=== PATIENT | male | born 1960 | race Caucasian/White ===

== ENCOUNTER 2023-07-14 11:17 | Emergency (ER) | payer OTHER, MEDICAID, SELFPAY ==
[2023-07-14] VITALS (7 sets, daily range): BP systolic 109–137; BP diastolic 60–71; PULSE 70–75; RESP 18–24; TEMP 36.5–37.1; O2SAT 94–96; BMI 25.8
[2023-07-14 12:11] LABS: Add Manual Diff / Slide Review NO; Basophils Absolute Auto 0 /uL (0-100); Basophils Percent Auto 0.4 % (0-2); Eosinophils Absolute Auto 0 /uL (0-450); Hematocrit 40.7 % (41-53); Hemoglobin 14.4 g/dL (13.5-17.5); Lymphocytes Absolute Auto 1000 /uL (1100-4500); Lymphocytes Percent Auto 8.1 % (25-40); Mean Corpuscular HGB Conc 35.3 % (30-36); Mean Corpuscular Hemoglobin 29.7 PG (26-34); Mean Corpuscular Volume 84.2 fL (80-100); Monocytes Absolute Auto 700 /uL (0-900); Monocytes Percent Auto 5.9 % (3-14); Neutrophils Absolute Auto 10800 /uL (1500-7000); Neutrophils Percent Auto 85.6 % (50-75); Platelet Count 141 X10^3/uL (150-400); Red Blood Cell Count 4.83 X10^6/uL (4.5-5.9); Red Cell Distribution Width 12.9 % (11.6-14.8); White Blood Cell Count 12.6 X10^3/uL (4.5-11.0)
[2023-07-14 12:22] LABS: Alanine Aminotransferase 35 IU/L (<50); Albumin 4.5 g/dL (3.5-5.0); Albumin Globulin Ratio 1.3 (1.0-2.8); Alkaline Phosphatase 64 U/L (38-126); Aspartate Aminotransferase 30 IU/L (17-59); BUN Creatinine Ratio 18.1 (6-22); Bilirubin Total 1.8 mg/dL (0.2-1.3); Blood Urea Nitrogen 19 mg/dL (9-20); Calcium 8.7 mg/dL (8.4-10.2); Carbon Dioxide 24 mmol/L (22-32); Chloride 102 mmol/L (98-107); Estimated Glomerular Filt Rate > 60 mL/min (>60); Globulin 3.5 g/dL (1.7-4.1); Glucose 145 mg/dL (80-110); HEMOLYSIS < 15 (0-50); Lipase 49 U/L (23-300); Potassium 3.6 mmol/L (3.4-5.1); Sodium 138 mmol/L (137-145)
--- NOTE | 2023-07-14 12:41 | ED_ITS ---
HPI - Abdominal Pain <Nilay Hanna PA-C - Last Filed: 07/14/23 15:52> General Chief Complaint: Abdominal Pain Stated Complaint: abd pain, rash on rt leg, weakness Time Seen by Provider: 07/14/23 11:56 Source: patient Mode of arrival: Wheelchair History of Present Illness HPI narrative: 63-year-old male with past medical history hypertension presents to the ED with 3 days of flu-like symptoms. Patient endorses subject fever, chills, all-over myalgias, loss of appetite, abdominal pain. Patient denies chest pain, shortness of breath, dysuria, vomiting, lightheadedness, dizziness, syncope. Patient denies rhinorrhea or cough. Patient endorses that there are other family members down with cough and cold/flu symptoms. Patient states that he gets nauseated at the thought of food and has not eaten very much in the last 2- 3 days. Patient also complains of generalized abdominal pain, which he attributes to not eating. Patient also endorses redness, swelling, pain of the right lower leg. Patient states that he chronic swelling in his right leg, however it is now red, more swollen, warm to touch and painful. Related Data Previous Rx's Medication Instructions Recorded cephalexin 500 mg capsule 500 mg PO QID 5 days #20 caps 07/14/23 Allergies Allergy/AdvReac Type Severity Reaction Status Date / Time Sulfa (Sulfonamide Allergy Verified 07/14/23 11:41 Antibiotics) Review of Systems <Nilay Hanna PA-C - Last Filed: 07/14/23 15:52> Constitutional Constitutional: Reports body ache(s), Reports chills, Reports fatigue, Reports fever(s), Denies frequent falls, Denies lethargy, Reports poor appetite and Denies weakness Eyes Eyes: Denies change in vision, Denies eye discharge, Denies irritation and Denies loss of vision ENT Ears, Nose, Mouth, and Throat: Denies change in voice, Denies dizziness, Denies neck pain, Denies sore throat and Denies throat swelling Cardiovascular Cardiovascular: Denies chest pain, Denies irregular heart rhythm, Denies lightheadedness, Denies palpitations, Denies dyspnea, Denies dyspnea on exertion and Denies orthopnea Respiratory Respiratory: Denies cough, Denies dyspnea, Denies dyspnea on exertion and Denies wheezing Gastrointestinal Gastrointestinal: Reports abdominal pain, Denies change in bowel habits, Denies diarrhea, Reports nausea and Denies vomiting Musculoskeletal Musculoskeletal: Denies neck pain and Denies numbness Integumentary/Breasts Skin/Breast: Denies pruritus, Reports erythema, Denies rash and Denies wounds Comments: Swelling, redness, warmth, pain of right lower leg. Neurologic Neurologic: Denies behavioral changes, Denies confusion, Denies dizziness, Denies frequent falls, Denies loss of vision, Denies numbness and Denies weakness Psychiatric Psychiatric: Denies anxiety, Denies behavioral changes, Denies confusion, Denies depression, Denies homicidal ideation and Denies suicidal ideation Endocrine Endocrine: Reports fatigue, Denies flushing and Denies palpitations Hematologic/Lymphatic Hematologic/Lymphatic: Denies easy bruising Allergic/Immunologic Allergic/Immunologic: Denies urticaria, Denies throat swelling and Denies wheezing Patient History <Nilay Hanna PA-C - Last Filed: 07/14/23 15:52> Social History Smoking Status: Former smoker Smoking Status: Former smoker alcohol intake frequency: other Substance Use Type: marijuana Exam <Nilay Hanna PA-C - Last Filed: 07/14/23 15:52> Narrative Exam Narrative: Const General:?cooperative, healthy appearing and comfortable [facility] Head:?normal to inspection Ears:?hearing grossly normal bilaterally Nose:?external nose normal Face and sinus:?normal facial exam and sinuses nontender Mouth:?oral mucosae normal Throat:?posterior oropharynx normal Eyes General:?appearance normal, both eyes and all related structures Neck Neck:?normal visual inspection and no lymphadenopathy noted Resp Effort & Inspection:?normal respiratory effort Auscultation:?clear to auscultation bilaterally Cardio Rate:?regular rate Rhythm:?regular rhythm GI Abdomen is somewhat hard, mildly tender to palpation. No CVA tenderness. Integumentary Right lower leg appears swollen, erythematous, warm to touch, tender to touch. Erythema extends from the feet up to the knee. Strength and sensation is intact. There is full range of motion. Patient is neurovascularly intact. Neuro General:?patient alert, patient awake and patient oriented x3 Initial Vital Signs Initial Vital Signs: Vital Signs Temperature 98.2 F 07/14/23 11:41 Pulse Rate 75 07/14/23 11:41 Respiratory Rate 18 07/14/23 11:41 Blood Pressure 137/71 07/14/23 11:41 Pulse Oximetry 94 07/14/23 11:41 Oxygen Delivery Method Room Air 07/14/23 11:41 <Lynette Torre DO - Last Filed: 07/15/23 07:24> Initial Vital Signs Initial Vital Signs: Vital Signs Temperature 98.2 F 07/14/23 11:41 Pulse Rate 75 07/14/23 11:41 Respiratory Rate 18 07/14/23 11:41 Blood Pressure 137/71 07/14/23 11:41 Pulse Oximetry 94 07/14/23 11:41 Oxygen Delivery Method Room Air 07/14/23 11:41 Course <Nilay Hanna PA-C - Last Filed: 07/14/23 15:52> Orders Ordered: Discontinued Medications Cephalexin HCl (Cephalexin 250 Mg Capsule) 500 mg PO NOW ONE Stop: 07/14/23 15:19 Last Admin: 07/14/23 15:23 Dose: 500 mg Documented By: GUILLERMO Sodium Chloride (Normal Saline 0.9%) 1,000 mls @ 1,000 mls/hr IV BOLUS ONE Stop: 07/14/23 14:25 Last Infusion: 07/14/23 14:35 Dose: Infused Documented By: Admin: 07/14/23 13:34 Dose: 1,000 mls/hr Documented By: GUILLERMO Ibuprofen (Ibuprofen 400 Mg Tablet) 400 mg PO NOW ONE Stop: 07/14/23 14:32 Last Admin: 07/14/23 14:33 Dose: 400 mg Documented By: GUILLERMO Ondansetron HCl (Ondansetron 4 Mg/2 Ml Inj) 4 mg IV NOW PRN PRN Reason: Nausea And Vomiting Last Admin: 07/14/23 13:34 Dose: 4 mg Documented By: RB Ondansetron HCl (Ondansetron 4 Mg Odt) 4 mg PO NOW PRN PRN Reason: Nausea And Vomiting Vital Signs Vital signs: Vital Signs - 8 hr 07/14/23 11:41 07/14/23 12:10 07/14/23 12:36 Temperature 98.2 F Pulse Rate 75 72 70 Respiratory Rate 18 24 18 Blood Pressure 137/71 120/60 114/70 Pulse Oximetry 94 95 96 Oxygen Delivery Method Room Air Room Air Room Air 07/14/23 13:20 07/14/23 14:33 07/14/23 15:21 Temperature 98.5 F 98.7 F Pulse Rate 72 70 Respiratory Rate 22 20 Blood Pressure 116/71 109/65 Pulse Oximetry 94 95 Oxygen Delivery Method Room Air Room Air <Lynette Torre DO - Last Filed: 07/15/23 07:24> Orders Ordered: Discontinued Medications Cephalexin HCl (Cephalexin 250 Mg Capsule) 500 mg PO NOW ONE Stop: 07/14/23 15:19 Last Admin: 07/14/23 15:23 Dose: 500 mg Documented By: RB Sodium Chloride (Normal Saline 0.9%) 1,000 mls @ 1,000 mls/hr IV BOLUS ONE Stop: 07/14/23 14:25 Last Infusion: 07/14/23 14:35 Dose: Infused Documented By: Admin: 07/14/23 13:34 Dose: 1,000 mls/hr Documented By: RB Ibuprofen (Ibuprofen 400 Mg Tablet) 400 mg PO NOW ONE Stop: 07/14/23 14:32 Last Admin: 07/14/23 14:33 Dose: 400 mg Documented By: RB Ondansetron HCl (Ondansetron 4 Mg/2 Ml Inj) 4 mg IV NOW PRN PRN Reason: Nausea And Vomiting Last Admin: 07/14/23 13:34 Dose: 4 mg Documented By: RB Ondansetron HCl (Ondansetron 4 Mg Odt) 4 mg PO NOW PRN PRN Reason: Nausea And Vomiting Vital Signs Vital signs: Vital Signs - 8 hr 07/14/23 11:41 07/14/23 12:10 07/14/23 12:36 Temperature 98.2 F Pulse Rate 75 72 70 Respiratory Rate 18 24 18 Blood Pressure 137/71 120/60 114/70 Pulse Oximetry 94 95 96 Oxygen Delivery Method Room Air Room Air Room Air 07/14/23 13:20 07/14/23 14:33 07/14/23 15:21 Temperature 98.5 F 98.7 F Pulse Rate 72 70 Respiratory Rate 22 20 Blood Pressure 116/71 109/65 Pulse Oximetry 94 95 Oxygen Delivery Method Room Air Room Air MDM - Abdominal Pain <Nilay Hanna PA-C - Last Filed: 07/14/23 15:52> Lab Data 07/14/23 12:01 07/14/23 12:01 Labs: Lab Results 07/14/23 07/14/23 Range/Units 12:01 14:20 WBC 12.6 H (4.5-11.0) X10^3/uL RBC 4.83 (4.5-5.9) X10^6/uL Hgb 14.4 (13.5-17.5) g/dL Hct 40.7 L (41-53) % MCV 84.2 (80-100) fL MCH 29.7 (26-34) PG MCHC 35.3 (30-36) % RDW 12.9 (11.6-14.8) % Plt Count 141 L (150-400) X10^3/uL Neut % (Auto) 85.6 H (50-75) % Lymph % (Auto) 8.1 L (25-40) % [place] % (Auto) 5.9 (3-14) % Eos % (Auto) 0.0 L (2-4) % Baso % (Auto) 0.4 (0-2) % Neut # (Auto) 17656 H (0768-6991) /uL Lymph # (Auto) 1000 L (0040-2431) /uL [place] # (Auto) 700 (0-900) /uL Eos # (Auto) 0 (0-450) /uL Baso # (Auto) 0 (0-100) /uL Sodium 138 (137-145) mmol/L Potassium 3.6 (3.4-5.1) mmol/L Chloride 102 (98-107) mmol/L Carbon Dioxide 24 (22-32) mmol/L BUN 19 (9-20) mg/dL Creatinine 1.05 (0.66-1.25) mg/dL Estimated GFR > 60 (>60) mL/min BUN/Creatinine Ratio 18.1 (6-22) Glucose 145 H (80-110) mg/dL Calcium 8.7 (8.4-10.2) mg/dL Total Bilirubin 1.8 H (0.2-1.3) mg/dL AST 30 (17-59) IU/L ALT 35 (<50) IU/L Alkaline Phosphatase 64 (38-126) U/L Total Protein 8.0 (6.3-8.2) g/dL Albumin 4.5 (3.5-5.0) g/dL Globulin 3.5 (1.7-4.1) g/dL Albumin/Globulin Ratio 1.3 (1.0-2.8) Lipase 49 (23-300) U/L Urine RBC 0-1/hpf (0-5/HPF) Urine WBC None seen (0-5/HPF) Ur Squamous Epith Cells 0-1 /hpf (0-5/HPF) Urine Bacteria Occasional (0-1) (None) Ur Culture Indicated? Cult not indicated Vol Urine Centrifuged 10ml (spun) Point of care testing: Urine Dip Bedside Urine Glucose Negative Bedside Urine Bilirubin - Negative Bedside Urine Ketone - Negative Urine Specific [place] 1.015 Bedside Urine Occult Blood ++ Bedside Urine pH 6.0 Bedside Urine Protein + 30 Bedside Urine Urobilinogen - Negative Bedside Urine Nitrite - Negative Bedside Urine Leukocytes - Negative Esterase MDM Narrative Medical decision making narrative: 63-year-old male with past medical history hypertension presents to the ED with 3 days of flu-like symptoms. Concern for cellulitis versus URI versus intra- abdominal pathology versus UTI versus pyelonephritis versus other. Will obtain labs, UA, CT abdomen pelvis. Will reassess. Labs, UA without acute findings. EKG is normal sinus rhythm with no acute ST-T changes. No axis deviation. CT abdomen pelvis shows some fluid-filled loops of bowel possibly associated with diarrhea but no other acute findings. Patient's symptoms are most consistent with cellulitis and also possible concomitant URI. Prescribed antibiotics. First dose of antibiotic given in the ED. recommend elevation and compression of leg, follow-up with PCP for further evaluation. ED return precautions discussed with patient. Patient verbalized understanding. Medical records reviewed: Yes <Lynette Torre, - Last Filed: 07/15/23 07:24> Lab Data Labs: Lab Results 07/14/23 07/14/23 Range/Units 12:01 14:20 WBC 12.6 H (4.5-11.0) X10^3/uL RBC 4.83 (4.5-5.9) X10^6/uL Hgb 14.4 (13.5-17.5) g/dL Hct 40.7 L (41-53) % MCV 84.2 (80-100) fL MCH 29.7 (26-34) PG MCHC 35.3 (30-36) % RDW 12.9 (11.6-14.8) % Plt Count 141 L (150-400) X10^3/uL Neut % (Auto) 85.6 H (50-75) % Lymph % (Auto) 8.1 L (25-40) % [place] % (Auto) 5.9 (3-14) % Eos % (Auto) 0.0 L (2-4) % Baso % (Auto) 0.4 (0-2) % Neut # (Auto) 01236 H (8964-7377) /uL Lymph # (Auto) 1000 L (1095-5408) /uL [place] # (Auto) 700 (0-900) /uL Eos # (Auto) 0 (0-450) /uL Baso # (Auto) 0 (0-100) /uL Sodium 138 (137-145) mmol/L Potassium 3.6 (3.4-5.1) mmol/L Chloride 102 (98-107) mmol/L Carbon Dioxide 24 (22-32) mmol/L BUN 19 (9-20) mg/dL Creatinine 1.05 (0.66-1.25) mg/dL Estimated GFR > 60 (>60) mL/min BUN/Creatinine Ratio 18.1 (6-22) Glucose 145 H (80-110) mg/dL Calcium 8.7 (8.4-10.2) mg/dL Total Bilirubin 1.8 H (0.2-1.3) mg/dL AST 30 (17-59) IU/L ALT 35 (<50) IU/L Alkaline Phosphatase 64 (38-126) U/L Total Protein 8.0 (6.3-8.2) g/dL Albumin 4.5 (3.5-5.0) g/dL Globulin 3.5 (1.7-4.1) g/dL Albumin/Globulin Ratio 1.3 (1.0-2.8) Lipase 49 (23-300) U/L Urine RBC 0-1/hpf (0-5/HPF) Urine WBC None seen (0-5/HPF) Ur Squamous Epith Cells 0-1 /hpf (0-5/HPF) Urine Bacteria Occasional (0-1) (None) Ur Culture Indicated? Cult not indicated Vol Urine Centrifuged 10ml (spun) Point of care testing: Urine Dip Bedside Urine Glucose Negative Bedside Urine Bilirubin - Negative Bedside Urine Ketone - Negative Urine Specific [place] 1.015 Bedside Urine Occult Blood ++ Bedside Urine pH 6.0 Bedside Urine Protein + 30 Bedside Urine Urobilinogen - Negative Bedside Urine Nitrite - Negative Bedside Urine Leukocytes - Negative Esterase Discharge Plan Departure Patient Disposition: Home Clinical Impression: Cellulitis Qualifiers: Site of cellulitis: extremity Site of cellulitis of extremity: lower extremity Laterality: right Qualified Code(s): L03.115 - Cellulitis of right lower limb Instructions: DI for Cellulitis -- Adult Activity Restrictions/Additional Instructions: You were evaluated in the ED today for right-sided lower leg pain and swelling and overall flu-like symptoms. Your labs and urine were normal. Your CT scan shows some fluid-filled loops of bowel which are indicative of diarrhea or gastroenteritis. This should get better over the next few days. You are being prescribed an antibiotic for a skin infection or cellulitis of the right lower leg. Please take the antibiotics as prescribed. Please keep the leg elevated above heart level. You may also use compression stockings during the day. Please follow-up with your PCP for further evaluation. Return to the ED if you have worsening symptoms, chest pain, shortness of breath. Prescriptions: New cephalexin 500 mg capsule 500 mg PO QID 5 Days Qty: 20 0RF Stand Alone Forms: Patient Portal/API ED Sign-out <Lynette Torre DO - Last Filed: 07/15/23 07:24> Cosign ED Attending Keerthi Attestation: I was immediately available in the department for consultation.
--- NOTE | 2023-07-14 12:49 | DI.CT.S_ITS ---
PROCEDURE: CT ABDOMEN PELVIS W CON INDICATIONS: abd pain TECHNIQUE: After the administration of intravenous contrast, axial sections acquired from the lung bases to the pubic symphysis. Coronal and sagittal reformats were performed. For radiation dose reduction, the following was used: automated exposure control, adjustment of mA and/or kV according to patient size. COMPARISON: None. FINDINGS: Image quality: Diagnostic. Lower Chest: No significant findings. ABDOMEN: Liver: No solid mass. Liver measures 18 cm with steatosis. Gallbladder: No radiopaque gallstones or wall thickening. Biliary ducts: No biliary dilation. Pancreas: No ductal dilation. Spleen: Size is within normal limits. Adrenal Glands: No adrenal nodules. Kidneys and Ureters: No hydronephrosis. No solid mass. No complex renal cystic lesion which requires follow up. Stomach and Bowel: Mild fluid-filled appearance of colon loops overall nonspecific. Peritoneum: No abnormal intraperitoneal fluid. No free air. Ventral Wall: No significant ventral hernia. Abdominal Nodes: No retroperitoneal or mesenteric adenopathy by size criteria. Vessels: Aorta and inferior vena cava are normal in size. PELVIS: Pelvic Organs: Unremarkable. Bladder: No bladder wall thickening, accounting for underdistention. Pelvic Nodes: No enlarged lymph nodes. Miscellaneous: No inguinal hernias are seen. Bones: No aggressive osseous abnormality. IMPRESSION: Mild scattered appearance of fluid-filled colon loops overall nonspecific. This could be reflective of diarrhea. Dictated by: Bev Leung M.D. on 07/14/2023 at 13:20 Approved by: Bev Leung M.D. on 07/14/2023 at 13:22
--- NOTE | 2023-07-14 12:58 | PC.NURSE ---
Patient left department with telephone technician.
[2023-07-14] MEDS: SODIUM CHLORIDE 0.9% 1,000 ML 1000 ML IV (13:34)
[2023-07-14] MEDS: ONDANSETRON 4 MG/2 ML INJ IV (13:34)
[2023-07-14] MEDS: IBUPROFEN 400 MG TABLET PO (14:33)
[2023-07-14 15:14] LABS: Bacteria Urine Occasional (0-1); RBC Urine 0-1/HPF (0-5/HPF); Urine Volume 10mL (spun); WBC Urine None Seen (0-5/HPF)
[2023-07-14 15:15] LABS: Culture Indicated Urine Cult Not Indicated; Squamous Epithelial Cell Urine 0-1 /HPF (0-5/HPF)
[2023-07-14] MEDS: cephALEXin 250 MG CAPSULE 500 MG PO (15:23)
== END 2023-07-14 16:11 | disposition home or self-care (01) ==
PROVIDERS: Emergency Provider Student in an Organized Health Care Education/Training Program
DX: L03.115 Cellulitis of right lower limb (principal)
CPT/HCPCS: 36415; 74177; 80053; 81003; 81015; 83690; 85025; 93005; 96374; 99284; J2405; Q9967